=== PATIENT | male | born 1955 | race African-American/Black ===

== ENCOUNTER 2017-09-15 10:06 | Inpatient (IN) | payer BC ==
[~2017-09-15] VITALS: Ht 182.9 cm; Wt 71.9 kg
--- NOTE | ~2017-09-15 | CATHLAB ---
[facility] [address] [place] [address] INVASIVE PROCEDURE REPORT Name: COLETTE DUNCAN Room #: 206-P ADM IN M.R.#: [id number] Admission: 09/15/17 Attend Phys: Tl Murphy, Discharge: Date of : 55 Date of Service: 09/17/17 [facility] Report #: [id number] THIS REPORT FOR: //name// APPROVED REPORT Patient Details Patient Status: In-Patient Room #: The patient is a 62 year-old male Event Personnel Wang Warren Trust Administrative Assistant, Crystal Hendrix CVT Monitor, Gorge Davies RN, Elliott Hernandez Aloi, Christine Tax Staff Accountant Procedures Performed Art Access - R femoral artery* Left Heart Cath w/or w/o Coronaries [id number] [facility] Place w/wo Plasty Single LAD [id number] Initial Mod Sed Same Phys/QHP Gr5y 195746 76647 Mod Sed Same Phys/QHP Ea [id number] Indication Chest pain Procedure Narrative The patient was brought urgently to the Cardiac Catheterization Laboratory and was prepped and draped in a sterile manner. The Right Groin^ was infiltrated with subcutaneous anesthesia. A PINNACLE 6FR Sheath #[id number] sheath was inserted into the RFA^. Coronary angiography was performed using coronary diagnostic catheters. The right coronary system was accessed and visualized with a JR 4 catheter. The left coronary system was accessed and visualized with a JL 4 catheter. The left ventricle was accessed and visualized with a Pigtail catheter. Left ventricular/Aortic Valve gradient assessed via catheter pullback. Left ventriculogram was performed in KEN projection. The patient tolerated the procedure well and there were no complications associated with the procedure. There was no hematoma. Intraoperative Conscious Sedation Sedation start time: 12:22 Case end Time: 13:48 Fentanyl 50.0 mcg Versed 2.0 mg Fluoro Time: 13.40 minutes Dose: DAP 90012.36 cGycm2 1821 mGy [facility] [address] [place] [address] INVASIVE PROCEDURE REPORT Name: COLETTE DUNCAN Room #: 206-P [facility] IN M.R.#: [id number] Admission: 09/15/17 Attend Phys: Tl Murphy, Discharge: Date of : 55 Date of Service: 09/17/17 1024 Report #: [id number] Contrast Type and Amount: Omnipaque 445 ml Coronary Angiography The patient's coronary anatomy is right dominant. Diagnostic Cath Left Main Normal LAD Critical 99% proximal LAD stenosis involving origin of large first diagonal branch Diagonal 1 Mild 20-30% ostial plaquing Circumflex Large, angiographically normal OM1 small, angiographically normal OM2 small, angiographically normal OM3 largest of 3 marginal branches. Normal Right Coronary Large, dominant. Mild 30% distal plaquing R PDA Small to moderate, mild plaquing RPLV large, angiographically normal Left Ventriculography The left ventricle is normal in size with normal contractility. The left ventricular ejection fraction is estimated to be 60-65%65-70%. There is no mitral insufficiency. Hemodynamics The aortic pressure is 149/74 mmHg with a mean of 82 mmHg. The left ventricular pressure is 157/2 mmHg with a mean of mmHg. The left ventricular end diastolic pressure is 19 mmHg. There was no gradient across the aortic valve upon pullback. PCI Technique Complex intervention to proximal LAD. Two Luge wires placed, one down LAD, the other first diagonal branch. D1 predilated with 2.0 Mozec balloon, followed by pre-dilation of proximal LAD. Proximal LAD then stented with 3.0 x 26mm Resolute stent. Ostium of diagonal with moderate stenosis, treated with 2.5mm Mozec ballon, several long inflations. Final post-dilatation of LAD stent with 3.0 NC Trek balloon, several high inflations. PCI Technique Lesion Anticoagulation was achieved with Heparin, Integrilin. Patient was preloaded with Brillinta. Percutaneous coronary intervention was performed on the proximal left anterior descending artery segment. The lesion stenosis prior to intervention was 99% with OLIVIA 3 flow. A LAUNCHER 6FR EBU 3.5 #[id number] Guide Catheter was used to engage the ostium. A Luge Wire .014 x 182CM #[id number] Interventional Guidewire was used to cross the lesion. [facility] [address] [place] [address] INVASIVE PROCEDURE REPORT Name: COLETTE DUNCAN Room #: 206-P [facility] IN M.R.#: [id number] Admission: 09/15/17 Attend Phys: Tl Murphy, Discharge: Date of : 55 Date of Service: 09/17/17 [facility] Report #: [id number] BALLOON DILATION A Balloon catheter Mozec 2.5 x 14 was inserted and inflated up to 10.00atm for 29seconds. Repeat angiography revealed the following post-dilatation results: Moderate residual stenosis with normal flow. Additional Inflation: 10.00atm for 22seconds. Double wires, one down LAD, other first diagonal branch. Diagonal branch pre-dilated with 2.0 x 10mm Mozec balloon. STENT DEPLOYMENT A drug-eluting stent RESOLUTE RX 3.0 X 26 #[id number] was inserted and inflated up to 12.00atm for 33seconds. POST STENT DEPLOYMENT BALLOON DILATION A Balloon catheter TREK NC RX 3.0 X 15 #[id number] was inserted and inflated up to 16.00atm for 26seconds. Additional Inflation: 16.00atm for 19seconds. Additional Inflation: 12atm for 18seconds. PCI Technique Lesion 2 Percutaneous Coronary Intervention was performed on the first diagnonal branch segment. The lesion stenosis prior to intervention was 85% with OLIVIA 3 flow. A LAUNCHER 6FR EBU 3.5 #[id number] Guide Catheter was used to engage the ostium. A Luge Wire .014 x 182CM #[id number] Interventional Guidewire was used to cross the lesion. Balloon Dilation A Balloon catheter Euphora RX 2.0 x 10 #[id number] was inserted and inflated up to 14.00atm for 32seconds. Additional Inflation: 14.00atm for 30seconds. BALLOON DILATION A Balloon catheter Euphora RX 2.0 x 10 #[id number] was inserted and inflated up to 12.00atm for 33seconds. Additional Inflation: 16.00atm for 26seconds. PCI Technique Lesion 3 Percutaneous Coronary Intervention was performed on the proximal left anterior descending artery segment. Conclusion 1. Normal to hyperdynamic left ventricular systolic function 2. Critical proximal LAD stenosis treated with 3.0 x 26mm Resolute stent. Partial stent halfway of large D1, treated with PTCA 3. Normal non-dominant circumflex 4. RCA dominant, mild distal plaquing [facility] [address] [place] [address] INVASIVE PROCEDURE REPORT Name: COLETTE DUNCAN Room #: 206-P ADM IN M.R.#: [id number] Admission: 09/15/17 Attend Phys: Tl Murphy, Discharge: Date of : 55 Date of Service: 09/17/17 1024 Report #: [id number] Recommendations Cardiac Rehabilitation Referral Cardiac Risk Reduction Program Aggressive Medical Therapy Medications Administered Aspirin (any) Beta Junior (any) Statin (any) Ticagrelor Cardiac Rehabilitation Referral <ELECTRONICALLY SIGNED> By: Wang Warren MD, FACC 09/17/17 1024 1024 1024 Wang Warren MD, FACC /INF
--- NOTE | ~2017-09-15 | EKG ---
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
--- NOTE | ~2017-09-15 | EKG ---
[address] [address] ELECTROCARDIOGRAM REPORT Name: COLETTE DUNCAN Room #: 206-P ADM IN M.R.#: [id number] Admission: 09/15/17 Attend Phys: Tl Murphy DO Discharge: Date of : 55 Report #: [id number] THIS REPORT FOR: //name// [facility] Test Date: 2017-09-16 Test Time: 14:49:33 Pat Name: COLETTE DUNCAN Department: Room: 206 P Gender: M Magnetic Grinder Operator: Shelly MARTIN : 1955 Requested By: Wang Warren Order Number: [id number] MD: Wang Warren Measurements Intervals [place] Rate: 76 P: 21 UT: 185 QRS: 50 QRSD: 82 T: 56 QT: 375 QTc: 422 Interpretive Statements Sinus rhythm No significant abnormality Compared to ECG 09/15/2017 10:25:15 No significant change was found Electronically Signed On 09-17-2017 9:25:50 MARINE RAILWAY OPERATOR by Wang Warren [email or web address] <ELECTRONICALLY SIGNED> By: Wang Warren MD, [facility] 09/17/17 0925 1449 1449 Wang Warren MD, FACC /EPI
--- NOTE | ~2017-09-15 | EXE ---
[facility] [address] [place] [address] STRESS ECHOCARDIOGRAM Name: STEPHANIA DUNCANONY Room #: 206-P ADM IN M.R.#: [id number] Admission: 09/15/17 Attend Phys: Tl Murphy, Discharge: Date of : 55 Date of Service: 09/15/171937 Report #: [id number] THIS REPORT FOR: //name// APPROVED REPORT Exam: Stress Echocardiogram Indication: Chest pain Patient Location: Echo lab Stress Nurse: Sandie Olmstead RN Room #: 206 Status: routine Ht: 6 ft 0 in BP: 158/89 mmHg Procedure The patient underwent an Exercise Stress Test using the Marito Protocol. Blood pressure, heart rate, and EKG were monitored. An Echocardiogram was performed by inventory technician in four stages in quad fashion. At peak stress, four selected images were obtained and placed side by side with resting images for comparison. Echo Enhancing Agent Indication: Endocardial border delineation Agent(s) / Amount(s) Used: Optison 5 cc Stress Test Details Stress Test: Exercise stress testing was performed using a Marito protocol. HR Resting HR: 80 bpm Max Heart Rate (APMHR): 158 bpm Max HR Achieved: 166 bpm Target HR (85% APMHR): 134 bpm % of APMHR: 105 Recovery HR: 107 bpm HR response to stress: Normal HR response to stress BP Resting BP: 158/89 mmHg Max BP: 175/90 mmHg Recovery BP: 132/76 mmHg ECG Resting ECG: Sinus Rhythm Stress ECG: Sinus Rhythm ST Change: [facility] [address] [place] [address] STRESS ECHOCARDIOGRAM Name: COLETTE DUNCAN Room #: 206-P [facility] IN ..#: [id number] Admission: 09/15/17 Attend Phys: Tl Murphy, Discharge: Date of : 55 Date of Service: 09/15/17 1938 Report #: [id number] Maximum ST Deviation: 1 mm Recovery ECG: Sinus Rhythm Recovery ST Change: Horizontal ST depression Recovery ST Deviation: 1 mm Clinical Reason for Termination: Completed protocol Exercise duration: 7 min 30 sec Highest Stage Achieved: Stage 3: 3.4 mph at 14% grade. Exercise capacity: 10.10 METs Angina Score: None Stress ECG Conclusion Clinical: Non-ischemic Abnormal exercise stress ECG consistent with stress-induced myocardial ischemia. Jeffries Treadmill Score is 2.0 which is Moderate risk. Pre-Stress Echo The resting Echocardiogram showed normal left ventricular contractility with an estimated Ejection Fraction of about 55-60%. Post-Stress Echo The stress Echocardiogram showed normalabnormal left ventricular contractility with an estimated Ejection Fraction of about 60-65%. The stress Echocardiogram demonstrated wall motion abnormality in the mid to distal septum and distal inferior fontenot . Imaging pre and post-exercise was very difficult and limited. Conclusion Clinical Response: Non-ischemic Exercise Capacity: Average Stress ECG Response: Ischemic Stress Echo Images: Ischemic Other Information Study Quality: Adequate <ELECTRONICALLY SIGNED> By: Wang Warren MD, FACC 09/15/171937 37 37 Wang Warren MD, FACC /INF
--- NOTE | ~2017-09-15 | EKG ---
[place] [address] [address] [place] [address] ELECTROCARDIOGRAM REPORT Name: DAKOTACOLETTE Room #: 206-P DIS IN M.R.#: [id number] Admission: 09/15/17 Attend Phys: Tl Murphy DO Discharge: 09/17/17 Date of : 55 Report #: [id number] THIS REPORT FOR: //name// [facility] Test Date: 2017-09-17 Test Time: 06:08:28 Pat Name: COLETTE DUNCAN Department: Room: 206 P Gender: M Anthropology Professor: SOL : 1955 Requested By: Wang Warren Order Number: [id number] MD: Wang Warren Measurements Intervals [place] Rate: 73 P: 34 OK: 166 QRS: 66 QRSD: 81 T: 56 QT: 368 QTc: 406 Interpretive Statements Sinus rhythm Anteroseptal infarct, old Compared to ECG 09/15/2017 10:25:15 No significant change was found Electronically Signed On 09-18-2017 7:37:04 LICENSED CLUB MANAGER by Wang Warren [email or web address] <ELECTRONICALLY SIGNED> By: Wang Warren MD, [facility] 09/18/17 0737 0608 7 Wang Warren MD, [facility] /EPI
[~2017-09-15 10:06] MED LIST: NORCO 5-325 TA1 EACH PO; VALTREX1000 MG PO; VIAGRA50 MG
[2017-09-15 10:11] VITALS: BP 171/95
[2017-09-15 10:42] LABS: HEMOGLOBIN 14.5 gm/dL (14.0-18.0); MCH 27.8 pg (26.0-34.0); MCHC 34.6 g/dL (28.0-37.0); MCV 80.4 fL (80.0-100.0); RBC 5.22 mil/uL (4.50-6.00); RDW 13.6 % (10.5-14.5); WBC 3.9 thou/uL (4.0-11.0)
[2017-09-15 10:50] LABS: ANION GAP 6 mmol/L (7-16); BUN 19 mg/dL (7-18); CHLORIDE 103 mmol/L (98-107); CO2 27 mmol/L (21-32); CREATININE 1.1 mg/dL (0.7-1.3); GLUCOSE 148 mg/dL (74-106); POTASSIUM 3.9 mmol/L (3.5-5.1); SODIUM 136 mmol/L (136-145)
[2017-09-15 10:59] LABS: TROPONIN-I < 0.04 ng/mL (<0.06)
[2017-09-15 12:53] VITALS: BP 124/74
[2017-09-15 13:03] VITALS: BP 133/81
[2017-09-15 13:24] VITALS: BP 142/91
[2017-09-15 15:44] VITALS: BP 126/76
[2017-09-15] MEDS ORDERED: FLOXIN10 M1 OPHTHALMIC (16:39)
[2017-09-15] MEDS ORDERED: ECONOPRED PLUS10 M1 OPHTHALMIC (16:41)
[2017-09-15 19:49] VITALS: BP 152/80
[2017-09-16] VITALS (12 sets, daily range): BP systolic 110–148; BP diastolic 63–96
[2017-09-16 04:16] LABS: HEMATOCRIT 40.6 % (42.0-52.0); HEMOGLOBIN 13.9 gm/dL (14.0-18.0); MCH 27.5 pg (26.0-34.0); MCHC 34.2 g/dL (28.0-37.0); MCV 80.4 fL (80.0-100.0); PLATELET COUNT 182 thou/uL (150-400); RBC 5.04 mil/uL (4.50-6.00); RDW 13.8 % (10.5-14.5); WBC 3.5 thou/uL (4.0-11.0)
[2017-09-16 04:25] LABS: MANUAL DIFF YES
[2017-09-16 04:32] LABS: CALCIUM 8.9 mg/dL (8.5-10.1); CREATININE 1.1 mg/dL (0.7-1.3)
[2017-09-16 04:38] LABS: CHOLESTEROL 229 mg/dL (<200); HDL CHOLESTEROL 50 mg/dL (>40); LDL CHOLESTEROL 168 mg/dL (<100); TC:HDL 4.6 Ratio (Not establshd); TRIGLYCERIDE 58 mg/dL (<150); VLDL 12 mg/dL (<40)
[2017-09-16 04:47] LABS: SERUM ASSESSMENT Clear
[2017-09-16 05:38] LABS: ABSOLUTE NEUTROPHILS 1.1 thou/uL (1.4-8.2); ATYPICAL LYMPHS 6 %; LARGE PLATELETS OCCASIONAL; TOTAL CELL COUNT 100
[2017-09-17 00:09] VITALS: BP 133/81
[2017-09-17 03:16] LABS: HEMATOCRIT 41.2 % (42.0-52.0); HEMOGLOBIN 13.9 gm/dL (14.0-18.0); MCH 27.3 pg (26.0-34.0); MCHC 33.6 g/dL (28.0-37.0); MCV 81.1 fL (80.0-100.0); RBC 5.08 mil/uL (4.50-6.00); RDW 13.6 % (10.5-14.5); WBC 4.4 thou/uL (4.0-11.0)
[2017-09-17 03:34] LABS: CREATININE 1.3 mg/dL (0.7-1.3); POTASSIUM 4.3 mmol/L (3.5-5.1); TROPONIN-I 0.29 ng/mL (<0.06)
[2017-09-17 06:09] VITALS: BP 103/66
[2017-09-17 08:09] VITALS: BP 150/77
[2017-09-17] MEDS ORDERED: BRILINTA90 MG PO (08:29)
[2017-09-17] MEDS ORDERED: ATORVASTATIN CA40 MG PO (08:29)
[2017-09-17] MEDS ORDERED: METOPROLOL SUCC50 MG PO (08:29)
[2017-09-17] MEDS ORDERED: ASPIR 8181 MG PO (08:29)
[2017-09-17 09:12] VITALS: BP 150/77
== END 2017-09-17 11:20 | disposition home or self-care (01) | DRG 247 ==
LOC: ER 10:06 → EROBS 11:32 → 2N 11:32
PROVIDERS: Emergency Medicine; Family Medicine; Internal Medicine
PROC: B215YZZ Fluoroscopy of Left Heart using Other Contrast (ICD-10-PCS; principal; 2017-09-17)
PROC: 027034Z Dilation of Coronary Artery, One Artery with Drug-eluting Intraluminal Device, Percutaneous Approach (ICD-10-PCS; principal; 2017-09-17)
PROC: B211YZZ Fluoroscopy of Multiple Coronary Arteries using Other Contrast (ICD-10-PCS; principal; 2017-09-17)
PROC: 4A023N7 Measurement of Cardiac Sampling and Pressure, Left Heart, Percutaneous Approach (ICD-10-PCS; principal; 2017-09-17)
DX: I25.110 Atherosclerotic heart disease of native coronary artery with unstable angina pectoris (principal); I10 Essential (primary) hypertension; E78.5 Hyperlipidemia, unspecified; Z88.6 Allergy status to analgesic agent
CPT/HCPCS: 10081

== ENCOUNTER 2017-11-23 05:11 | Emergency (ER) | payer BC ==
[~2017-11-23] VITALS: Ht 182.9 cm; Wt 85.3 kg
[~2017-11-23 05:11] MED LIST changes: +ASPIR 8181 MG PO; +ATORVASTATIN CA40 MG PO; +BRILINTA90 MG PO; +ECONOPRED PLUS10 M1 OPHTHALMIC; +FLOXIN10 M1 OPHTHALMIC; +METOPROLOL SUCC50 MG PO
[2017-11-23] MEDS ORDERED: TESSALON PERLE100 MG PO (05:48)
[2017-11-23] MEDS ORDERED: AUGMENTIN 500-1 EACH PO (05:54)
[2017-11-23 06:05] VITALS: BP 119/77
== END 2017-11-23 06:35 | disposition home or self-care (01) ==
LOC: ER 05:11
DX: J69.0 Pneumonitis due to inhalation of food and vomit (principal); Z88.6 Allergy status to analgesic agent

== ENCOUNTER → 2020-06-23 | Outpatient (CLI) | payer OTHER ==
[~2020-06-23] MED LIST changes: +AUGMENTIN 500-1 EACH PO; +TESSALON PERLE100 MG PO
== END ==
LOC: SJCVC 13:33
PROVIDERS: ATTEND Internal Medicine
DX: I25.10 Atherosclerotic heart disease of native coronary artery without angina pectoris (principal); I10 Essential (primary) hypertension; E78.5 Hyperlipidemia, unspecified; Z79.899 Other long term (current) drug therapy